=== PATIENT | female | born 1980 | race Caucasian/White ===

== ENCOUNTER 2025-02-06 10:48 | Emergency (ER) | payer OTHER, SELFPAY ==
--- NOTE | ~2025-02-06 | XR_ITS ---
EXAMINATION: XR elbow RT min 3V DATE: 02/06/2025 11:15 INDICATION: Lateral right elbow pain post fall TECHNIQUE: Anteroposterior, two oblique and lateral views of the right elbow were obtained. COMPARISON: None. FINDINGS: Minimally impacted intra-articular fracture at the right radial head with <1 mm step-off along the ar ticular surface. The depressed fragment comprises 40% of the articular surface area. No other fractur es identified. Joint spaces are normal. No elbow joint effusion. Soft tissues are unremarkable. IMPRESSION: 1. Minimally depressed intra-articular fracture at the right radial head. Reviewed, dictated and finalized at location A.
--- NOTE | 2025-02-06 10:50 | ED_ITS ---
HPI - General Adult General Chief complaint: Extremity Injury, Upper Stated complaint: FALL Time Seen by Provider: 02/06/25 11:00 Source: patient and RN notes reviewed Mode of arrival: ambulatory Limitations: no limitations History of Present Illness HPI narrative: 44-year-old female presents to the [facility] with complaints of right elbow pain Patient reports that she tripped over child at work and fell onto her elbow. Tenderness to the lateral aspect. Mild swelling noted. No erythema or ecchymosis Decreased range of motion Patient is right-hand Treatments prior to arrival: none Related Data Allergies Allergy/AdvReac Type Severity Reaction Status Date / Time No Known Allergies Allergy Verified 02/06/25 11:06 Review of Systems Review of Systems: All systems reviewed & are unremarkable except as noted in HPI and below Constitutional: Constitutional: Reports no additional constitutional complaints Cardiovascular: Cardiovascular: Reports no additional cardiovascular complaints, Denies chest pain and Denies dyspnea Respiratory: Respiratory: Reports no additional respiratory complaints, Denies chest congestion, Denies cough and Denies dyspnea Musculoskeletal: Musculoskeletal: Reports as per HPI, Reports arthralgias and Reports joint swelling Integumentary/Breasts: Skin/Breast: Reports system reviewed and no additional complaints, except as docu PMFSH Comments At the time of my signature, I reviewed and agree with the nursing past medical, surgical, social, and family history. There is no relevant family history pertinent to the patient complaint. Exam Const: General: cooperative, healthy appearing, comfortable, no acute distress, well developed, alert and well nourished Nutritional Appearance: well nourished Orientation/consciousness: patient oriented x3 Limitations: no limitations HENMT: Head: normal to inspection Eyes: General: appearance normal, both eyes and all related structures Alignment and Position: alignment normal Neck: Neck: normal visual inspection, full ROM, no lymphadenopathy and no meningeal signs Chest: Chest palpation & inspection: normal inspection of the chest Resp: Effort & Inspection: normal respiratory effort and able to speak in complete sentences Cardio: Rate: regular rate Skin: General skin exam: normal color and no rashes or lesions noted Neuro: General: patient oriented x3, gait normal, moves all extremities and no meningeal signs Cognition (Neuro): normal cognition Speech: normal speech Gait exam (Neuro): Normal gait present Extrem: General: normal to inspection, full ROM, capillary refill normal and normal gait Right upper extremity: elbow/forearm tenderness of the radial head, swelling, abnormal ROM and distal pulses intact; no unusual warmth, no abrasions, no lacerations, no ecchymosis, no penetrating wound and no deformity, wrist normal to inspection and Extremity exam: right hand normal to inspection and neuromotor exam normal wrist extension normal, thumb opposition normal, thumb IP flexion normal, thumb ADduction normal and fingers 2-5 ABduction normal Psych: Appearance: grossly normal and well kempt Mental Status: mental status grossly normal Speech and movement: Normal speech and movement present and Clear speech present Affect: normal affect Attitude: cooperative Course Course Level of Care: Express Care Visit Vital Signs Vital signs: Vital Signs Temperature 97.0 F L 02/06/25 10:59 Pulse Rate 117 H 02/06/25 10:59 Respiratory Rate 20 02/06/25 10:59 Blood Pressure 162/94 H 02/06/25 10:59 Pulse Oximetry 100 02/06/25 10:59 Oxygen Delivery Room Air 02/06/25 10:59 Temperature 97.0 F L 02/06/25 10:59 Pulse Rate 117 H 02/06/25 10:59 Respiratory Rate 20 02/06/25 10:59 Blood Pressure 162/94 H 02/06/25 10:59 Pulse Oximetry 100 02/06/25 10:59 Oxygen Delivery Room Air 02/06/25 10:59 Reviewed Medical Decision Making MDM Narrative Medical decision making narrative: Patient sitting in exam room. Nontoxic, vitals stable. Patient is in no acute distress. Patient presents with decreased range of motion, pain to the proximal forearm, elbow X-ray shows fracture of proximal radius Patient appropriate for outpatient treatment, splint placed in clinic by RN intact. Sling applied. Discharge instructions reviewed with patient, as well as provided in writing per nursing staff. The instructions also include specific and strict return/GO TO THE ER as well as f/u information. All questions have been answered, and the patient deny any further questions with discharge and discharge plan. Some parts of this dictation were generated by voice recognition software and may contain typographical and/or grammatical inaccuracies. Differential Diagnosis Differential Diagnosis: Elbow contusion, elbow fracture, Medical Records Medical records reviewed: Yes I reviewed the external patient's medical records. Vital Signs Vital Signs: Vital Signs Temperature 97.0 F L 02/06/25 10:59 Pulse Rate 117 H 02/06/25 10:59 Respiratory Rate 20 02/06/25 10:59 Blood Pressure 162/94 H 02/06/25 10:59 Pulse Oximetry 100 02/06/25 10:59 Oxygen Delivery Room Air 02/06/25 10:59 Temperature 97.0 F L 02/06/25 10:59 Pulse Rate 117 H 02/06/25 10:59 Respiratory Rate 20 02/06/25 10:59 Blood Pressure 162/94 H 02/06/25 10:59 Pulse Oximetry 100 02/06/25 10:59 Oxygen Delivery Room Air 02/06/25 10:59 Reviewed Lab Data Lab results reviewed: Yes I reviewed the patient's lab results. Labs: Reviewed Imaging Data Radiologist's impression: EXAMINATION: XR elbow RT min 3V DATE: 02/06/2025 11:15 INDICATION: Lateral right elbow pain post fall TECHNIQUE: Anteroposterior, two oblique and lateral views of the right elbow were obtained. COMPARISON: None. FINDINGS: Minimally impacted intra-articular fracture at the right radial head with <1 mm step-off along the articular surface. The depressed fragment comprises 40% of the articular surface area. No other fractures identified. Joint spaces are normal. No elbow joint effusion. Soft tissues are unremarkable. IMPRESSION: 1. Minimally depressed intra-articular fracture at the right radial head. Critical Care Time Critical Care Time Critical Care Time: No Discharge Plan Discharge Clinical Impression: Closed fracture of radial head Qualifiers: Encounter type: initial encounter Fracture alignment: nondisplaced Laterality: right Qualified Code(s): S52.124A - Nondisplaced fracture of head of right radius, initial encounter for closed fracture Patient Disposition: Home Condition: Stable Instructions: Antibiotic Form, Elbow Fracture (ED), How to Use a Sling (ED), Splint Care (ED) Additional Instructions: Ice should be applied to help reduce swelling. It can be used for 20 to 30 minutes, every 2-3 hours while awake. Do not apply ice directly to your skin. You can alternate ibuprofen 600mg and Tylenol 650mg every 4 hours as needed for pain Follow-up with ortho for further evaluation. Follow-up with your primary. Today your blood pressure was 162/94. Is recommended to follow up within 2 weeks. For new or worsening symptoms go directly to the emergency room Patient Language: [place] Follow-up/Referrals: Doen Steven MD [Physician] - 3 Days (Radial head fracture ) UNKNOWN,DOCTOR [Non-Staff] - Stand Alone Forms: Work/School Release IP Time of Disposition: 12:10
[2025-02-06 10:59] VITALS: BP 162/94; PULSE 117; RESP 20; TEMP 36.1; O2SAT 100
== END 2025-02-06 12:11 | disposition home or self-care (01) ==
PROVIDERS: Emergency Provider Nurse Practitioner
DX: S52.124A Nondisplaced fracture of head of right radius, initial encounter for closed fracture (principal); W03.XXXA Other fall on same level due to collision with another person, initial encounter; Y99.0 Civilian activity done for income or pay
CPT/HCPCS: 29105; 73080; 99204; A4565; G0463